=== PATIENT | female | born 1980 | race Caucasian/White ===

== ENCOUNTER 2023-04-21 16:38 | Emergency (ER) | payer OTHER, BC ==
[~2023-04-21] VITALS: Ht 167.6 cm; Wt 121.8 kg
[2023-04-21] MEDS ORDERED: ACETAMINOPHEN 500 MG TAB PO ONE (19:15)
[2023-04-21] MEDS ORDERED: METH-1164 PO (20:23)
[2023-04-21 20:35] VITALS: BP 138/83; TEMP 98.2; O2SAT 98
== END 2023-04-21 20:40 | disposition home or self-care (01) ==
LOC: M ED 16:38
DX: S09.90XA Unspecified injury of head, initial encounter (principal); M54.2 Cervicalgia; V49.50XA Passenger injured in collision with unspecified motor vehicles in traffic accident, initial encounter; Z88.0 Allergy status to penicillin; Z88.6 Allergy status to analgesic agent; Z91.011 Allergy to milk products; Z79.899 Other long term (current) drug therapy